=== PATIENT | male | born 1970 | race Caucasian/White ===

== ENCOUNTER 2016-10-13 14:20 | Emergency (ER) | payer SELFPAY ==
[2016-10-13] MEDS ORDERED: CYCLOBENZAPRINE 10 MG TAB ONE (17:49)
[2016-10-13] MEDS ORDERED: KETOROLAC 60 MG/2 ML VIAL IM ONE (17:49)
== END 2016-10-13 18:33 | disposition home or self-care (01) ==
LOC: ER 14:20
DX: S16.1XXA Strain of muscle, fascia and tendon at neck level, initial encounter (principal); S29.011A Strain of muscle and tendon of front wall of thorax, initial encounter; S46.011A Strain of muscle(s) and tendon(s) of the rotator cuff of right shoulder, initial encounter; X58.XXXA Exposure to other specified factors, initial encounter; F17.210 Nicotine dependence, cigarettes, uncomplicated
CPT/HCPCS: 71020; 72050; 96372